=== PATIENT | female | born 1995 | race Caucasian/White ===

== ENCOUNTER 2017-08-08 22:26 | Emergency (ER) | payer BC ==
[~2017-08-08] VITALS: Ht 147.3 cm; Wt 51.2 kg
[2017-08-09] MEDS ORDERED: TESSALON PERLE100 MG PO (01:00)
[2017-08-09] MEDS ORDERED: OCUFLOX 0.100 DROP/5 RIGHT EYE (01:00)
[2017-08-09] MEDS ORDERED: COUGH & COLD S237 ML PO (01:00)
[2017-08-09 01:42] VITALS: BP 128/85
== END 2017-08-09 01:44 | disposition home or self-care (01) ==
LOC: EME 22:26
DX: J06.9 Acute upper respiratory infection, unspecified (principal); J02.9 Acute pharyngitis, unspecified; R11.10 Vomiting, unspecified; H10.9 Unspecified conjunctivitis
CPT/HCPCS: 87651 90; 99281; 99283